=== PATIENT | female | born 1940 | race Caucasian/White ===

== ENCOUNTER 2018-01-29 16:29 | Outpatient (REF) | payer MEDICARE, BC, SELFPAY ==
[2018-01-29 19:58] LABS: Anion Gap 7.7 mmol/L (3-11); BUN 19 mg/dL (7-18); CO2 32.3 mmol/L (21.0-32.0); CREATININE 0.87 mg/dL (0.55-1.02); Calcium 9.3 mg/dL (8.5-10.1); Chloride 101 mmol/L (98-107); Glucose 95 mg/dL (70-100); Potassium 3.5 mmol/L (3.5-5.1); Sodium 141 mmol/L (136-145)
== END 2018-01-29 16:49 ==
LOC: NCHCN 16:29
PROVIDERS: PCP Internal Medicine; Visit Provider Internal Medicine
DX: E03.9 Hypothyroidism, unspecified (principal)
CPT/HCPCS: 80048; 84443

== ENCOUNTER 2019-02-01 12:22 | Outpatient (REF) | payer MEDICARE, BC, SELFPAY ==
[2019-02-01 18:49] LABS: HCT 45.9 % (36.0-46.0); HGB 14.7 g/dL (12.0-15.5); Mean Corpuscular Hemoglobin 29.1 pg (27.0-33.0); Mean Corpuscular Volume 90.7 fL (80-95); Mean Platelet Volume 12.3 fL (8.0-11.0); Platelet Count 209 x1000/uL (130-400); RBC 5.06 m/cumm (4.00-5.20); RBC Distribution Width 13.3 % (11.7-14.6); White Blood Cell Count 9.12 k/cumm (4.4-10.8)
[2019-02-01 19:11] LABS: CREATININE 0.89 mg/dL (0.55-1.02); TSH 0.65 uIU/mL (0.36-3.74)
[2019-02-01 19:26] LABS: Vitamin D 25 Total 20.7 ng/ml (30-100)
== END 2019-02-01 12:42 ==
LOC: NCHCN 12:22
PROVIDERS: PCP Internal Medicine; Visit Provider Internal Medicine
DX: E03.9 Hypothyroidism, unspecified (principal); E55.9 Vitamin D deficiency, unspecified
CPT/HCPCS: 82306; 85027; 82565; 84443

== ENCOUNTER 2020-03-28 22:54 | Outpatient (REF) | payer MEDICARE, BC, SELFPAY ==
[2020-03-30 18:44] LABS: COVID-19 RT-PCR UVMMC Result Negative (Negative)
== END 2020-03-28 23:14 ==
LOC: NCHCN 22:54
PROVIDERS: PCP Internal Medicine; Visit Provider Internal Medicine
DX: Z20.828 Contact with and (suspected) exposure to other viral communicable diseases (principal)
CPT/HCPCS: U0003

== ENCOUNTER 2020-04-12 19:48 | Outpatient (REF) | payer MEDICARE, BC, SELFPAY ==
[2020-04-14 23:00] LABS: COVID-19 RT-PCR UVMMC Result Positive (Negative)
== END 2020-04-12 20:08 ==
LOC: NCHCN 19:48
PROVIDERS: PCP Internal Medicine; Visit Provider Family Medicine
DX: Z20.828 Contact with and (suspected) exposure to other viral communicable diseases (principal)
CPT/HCPCS: U0003

== ENCOUNTER 2020-10-19 16:17 | Outpatient (REF) | payer MEDICARE, BC, SELFPAY ==
[2020-10-19 18:28] LABS: HCT 44.5 % (36.0-46.0); HGB 14.3 g/dL (11.2-15.7); MCH 28.7 pg (27.0-33.0); MCHC 32.1 % (32.0-36.0); MCV 89.2 fL (80-95); MPV 12.1 fL (8.0-11.0); Platelet Count 203 10^3/uL (130-400); RBC 4.99 10^6/uL (3.93-5.22); RDW 12.5 % (11.7-14.6); RDW-SD 40.6 fL; WBC 7.56 10^3/uL (4.4-10.8)
[2020-10-19 18:49] LABS: Anion Gap 8.1 mmol/L (3-11); BUN 19 mg/dL (7-18); CO2 27.9 mmol/L (21.0-32.0); CREATININE 1.1 mg/dL (0.55-1.02); Calcium 9.2 mg/dL (8.5-10.1); Chloride 107 mmol/L (98-107); Estimated GFR 47.79 (mL/min/1.73m2); Glucose 131 mg/dL (74-106); Potassium 4.2 mmol/L (3.5-5.1); Sodium 143 mmol/L (136-145); TSH 0.45 uIU/mL (0.36-3.74)
== END 2020-10-19 16:18 | disposition home or self-care (01) ==
LOC: NCHCN 16:17
PROVIDERS: PCP Internal Medicine; Visit Provider Internal Medicine
DX: Z00.00 Encounter for general adult medical examination without abnormal findings (principal); R06.09 Other forms of dyspnea; E03.9 Hypothyroidism, unspecified
CPT/HCPCS: 80048; 85027; 84443

== ENCOUNTER 2021-09-10 16:02 | Outpatient (REF) | payer MEDICARE, SELFPAY ==
[2021-09-10 19:39] LABS: Anion Gap 8.1 mmol/L (3-11); BUN 19 mg/dL (7-18); CO2 29.9 mmol/L (21.0-32.0); CREATININE 0.9 mg/dL (0.55-1.02); Calcium 9.2 mg/dL (8.5-10.1); Chloride 106 mmol/L (98-107); Glucose 106 mg/dL (74-106); Potassium 4.1 mmol/L (3.5-5.1); Sodium 144 mmol/L (136-145)
[2021-09-10 19:56] LABS: Vitamin D 25 Total 26.2 ng/mL (30-100)
== END 2021-09-10 16:03 | disposition home or self-care (01) ==
LOC: NCHCN 16:02
PROVIDERS: PCP Internal Medicine; Visit Provider Internal Medicine
DX: E03.9 Hypothyroidism, unspecified (principal); E78.5 Hyperlipidemia, unspecified
CPT/HCPCS: 80048; 82306; 84443

== ENCOUNTER 2021-10-16 16:41 | Outpatient (REF) | payer MEDICARE, SELFPAY ==
[2021-10-16 20:02] LABS: TSH 0.63 uIU/mL (0.36-3.74)
== END 2021-10-16 16:42 | disposition home or self-care (01) ==
LOC: NCHCN 16:41
PROVIDERS: PCP Internal Medicine; Visit Provider Internal Medicine
DX: E03.9 Hypothyroidism, unspecified (principal)
CPT/HCPCS: 84443

== ENCOUNTER 2022-09-11 12:46 | Outpatient (REF) | payer MEDICARE, SELFPAY ==
[2022-09-11 20:22] LABS: Anion Gap 4.6 mmol/L (3-11); BUN 18 mg/dL (7-18); CO2 31.4 mmol/L (21.0-32.0); Calcium 9.5 mg/dL (8.5-10.1); Calculated LDL 157 mg/dL (<100); Chloride 106 mmol/L (98-107); Cholesterol 248 mg/dL (<200); Estimated GFR 56.25 (mL/min/1.73m2); Glucose 86 mg/dL (74-106); HDL Cholesterol 68 mg/dL (40-60); Potassium 4.1 mmol/L (3.5-5.1); Sodium 142 mmol/L (136-145); Triglyceride 116 mg/dL (<150)
== END 2022-09-11 12:47 | disposition home or self-care (01) ==
LOC: NCHCN 12:46
PROVIDERS: PCP Internal Medicine; Visit Provider Internal Medicine
DX: R07.89 Other chest pain (principal); E03.9 Hypothyroidism, unspecified; E78.5 Hyperlipidemia, unspecified
CPT/HCPCS: 80048; 80061; 84443

== ENCOUNTER 2023-05-08 10:31 | Outpatient (REF) | payer MEDICARE, SELFPAY ==
[2023-05-08 19:15] LABS: TSH 7.28 uIU/mL (0.36-3.74)
[2023-05-08 19:54] LABS: Calculated LDL 93 mg/dL (<100); Cholesterol 181 mg/dL (<200); HDL Cholesterol 72 mg/dL (40-60); Triglyceride 80 mg/dL (<150)
== END 2023-05-08 10:32 | disposition home or self-care (01) ==
LOC: NCHCN 10:31
PROVIDERS: PCP Internal Medicine; Visit Provider Internal Medicine
DX: E03.9 Hypothyroidism, unspecified (principal); E78.5 Hyperlipidemia, unspecified
CPT/HCPCS: 80061; 84443

== ENCOUNTER 2024-08-16 14:16 | Outpatient (REF) | payer MEDICARE, SELFPAY ==
[2024-08-16 19:07] LABS: Anion Gap 3.9 mmol/L (3-11); BUN 21 mg/dL (7-18); CO2 31.1 mmol/L (21.0-32.0); Calcium 9.9 mg/dL (8.5-10.1); Chloride 106 mmol/L (98-107); Estimated GFR 55.55 (mL/min/1.73m2); FREE T4 1.13 ng/dL (0.76-1.46); Glucose 89 mg/dL (74-106); Potassium 4.3 mmol/L (3.5-5.1); Sodium 141 mmol/L (136-145); TSH 5.13 uIU/mL (0.36-3.74)
[2024-08-17 19:07] LABS: Calculated LDL 164 mg/dL (<100); Cholesterol 252 mg/dL (<200); HDL Cholesterol 54 mg/dL (>or=50); Triglyceride 174 mg/dL (<150); Vitamin D 25 Total 24 ng/mL (30-100)
== END 2024-08-16 14:17 | disposition home or self-care (01) ==
LOC: NCHCN 14:16
PROVIDERS: PCP Internal Medicine; Visit Provider Internal Medicine
DX: I10 Essential (primary) hypertension (principal); E55.9 Vitamin D deficiency, unspecified; E03.9 Hypothyroidism, unspecified
CPT/HCPCS: 80048; 80061; 82306; 84439; 84443

== ENCOUNTER 2024-10-11 15:38 | Outpatient (REF) | payer MEDICARE, SELFPAY ==
[2024-10-11 19:45] LABS: TSH 1.10 uIU/mL (0.36-3.74)
== END 2024-10-11 15:39 | disposition home or self-care (01) ==
LOC: NCHCN 15:38
PROVIDERS: PCP Internal Medicine; Visit Provider Internal Medicine
DX: E03.9 Hypothyroidism, unspecified (principal)
CPT/HCPCS: 84443